=== PATIENT | male | born 1955 | race American Indian/Alaskan Native ===

== ENCOUNTER 2017-02-23 20:43 | Emergency (ER) | payer OTHER ==
--- NOTE | 2017-02-23 21:20 | C.PDOC ---
History Of Present Illness 61 year old male with no significant PMHx who presents for evaluation of left sided lower back pain radiating to the left leg that has been gradually worsening over the past few days. Patient admits the pain is localized and worsens with movement. Patient reports he does heavy lifting at work that might exacerbate the pain; otherwise denies any direct trauma/injury, CP, SOB, dyspnea , abdominal pain, nausea, vomiting, UTI symptoms., incontinence, saddle anesthesia, denies weakness, sensory or vascular deficits to B/L LEs. Ambulate to Ed for evaluation, appears in some painful distress. Time Seen by Provider: 02/23/17 21:08 Chief Complaint (Nursing): Back Pain History Per: Patient History/Exam Limitations: no limitations Onset/Duration Of Symptoms: Days Current Symptoms Are (Timing): Still Present Quality Of Discomfort: Unable To Describe Previous Symptoms: None Associated Symptoms: None Exacerbating Factor(s): Movement Recent travel outside of the [place]: No Past Medical History Reviewed: Historical Data, Nursing Documentation, Vital Signs Vital Signs: Last Vital Signs Temp 98 F 02/23/17 20:47 Pulse 67 02/23/17 20:47 Resp 20 02/23/17 20:47 BP 156/93 H 02/23/17 20:47 Pulse Ox 97 02/23/17 21:28 - Medical History PMH: Arthritis Surgical History: No Surg Hx Family History: States: Unknown Family Hx - Social History Hx Alcohol Use: No Hx Substance Use: No - Immunization History Hx Tetanus Toxoid Vaccination: No Hx Influenza Vaccination: No Hx Pneumococcal Vaccination: No Review Of Systems Except As Marked, All Systems Reviewed And Found Negative. Constitutional: Negative for: Fever, Chills ENT: Negative for: Throat Pain Cardiovascular: Negative for: Chest Pain Gastrointestinal: Negative for: Nausea, Vomiting, Abdominal Pain Genitourinary: Negative for: Dysuria, Incontinence, Hematuria Musculoskeletal: Positive for: Back Pain, Leg Pain Skin: Negative for: Rash Neurological: Negative for: Weakness, Numbness Physical Exam - Physical Exam Appears: Non-toxic, No Acute Distress Skin: Normal Color, Warm, Dry, No Rash Oral Mucosa: Moist Throat: No Erythema Neck: Normal ROM, Supple Gastrointestinal/Abdominal: Soft, No Tenderness, No Distention, No Guarding Back: No CVA Tenderness, No Vertebral Tenderness, Paraspinal Tenderness (Left sided lumbar), Straight Leg Raising (left leg (+)at 70 degress, right leg (+)80 degrees) Extremity: Normal ROM (x4), Tenderness (left gluteus), No Pedal Edema, No Calf Tenderness (B/L), No Deformity Neurological/Psych: Oriented x3, Normal Speech, Normal Cognition, Normal Motor, Normal Sensation, Normal Reflexes Gait: Steady ED Course And Treatment O2 Sat by Pulse Oximetry: 97 (Room air) Pulse Ox Interpretation: Normal - Other Rad L-spine xray X-Ray: Interpreted by Me, Viewed By Me Interpretation: (+) mild DJD, no acute fx or sublux. (+) gas pattern c/w constipation Progress Note: LS spine x-ray and urinalysis ordered. Toradol and valium administered. On re-eavl, pt is afebrile, hemodynamicaly stable. non-toxic. AMbulatory in Ed with stable gait. neck; Supple. Abd: benign, (-) guarding, (- ) rebound. back: (-) CVA tenderness. Neuorlogicaly intact. Imaging review and appears without acute abnoramlities. UA- normal study. Pt has clinical findings c/w left lumbar radiculopathy, constipation. Pt advised. ref. to f/u with PMD in 2-3 days for re-eavl. return if any new changes. Disposition Counseled Patient/Family Regarding: Studies Performed, Diagnosis, Need For Followup, Rx Given - Disposition Referrals: [facility] [Outside] Disposition: HOME/ ROUTINE Disposition Time: 21:45 Condition: STABLE Additional Instructions: AVOID HEAVY LIFTING, BENDING FORWARD. ETC TAKE PAIN MEDICATION NEED FOR PAIN FOLLOW UP WITH PMD IN 2-3 DAYS FOR RE-EVALUATION. RETURN TO ED IF ANY WORSENING OR NEW CHANGES. Prescriptions: Ibuprofen [Motrin Tab] 600 mg PO Q6 #20 tab Methocarbamol [Robaxin] 500 mg PO TID #14 tab traMADol [Ultram] 50 mg PO TID #7 tab Instructions: Lumbar Radiculopathy (ED), Constipation (ED) Forms: [employer] (Romanian), Work Excuse - Clinical Impression Clinical Impression: Lumbar radiculopathy, Constipation - Scribe Statement The provider has reviewed the documentation as recorded by the Scribmiguel Barrow All medical record entries made by the Scribe were at my direction and personally dictated by me. I have reviewed the chart and agree that the record accurately reflects my personal performance of the history, physical exam, medical decision making, and the department course for this patient. I have also personally directed, reviewed, and agree with the discharge instructions and disposition.
[2017-02-23 21:40] LABS: RBC URINE < 1 /hpf (0-3); URINE BILIRUBIN NEGATIVE (NEGATIVE); URINE BLOOD NEGATIVE (NEGATIVE); URINE COLOR Yellow (YELLOW); URINE GLUCOSE (UA) NORMAL (Normal); URINE KETONE NEGATIVE (NEGATIVE); URINE LEUKOCYTE ESTERASE NEG Leu/uL (Negative); URINE PROTEIN NEGATIVE (NEGATIVE); URINE UROBILINOGEN NORMAL mg/dL (0.2-1.0); WBC URINE < 1 /hpf (0-5)
[2017-02-23 22:10] VITALS: BP 169/93; PULSE 63; RESP 18; TEMP 98.3; O2SAT 100
--- NOTE | 2017-02-24 14:03 | RAD ---
PROCEDURE: Radiographs of the Lumbar Spine. HISTORY: pain COMPARISON: No prior. FINDINGS: BONES: No acute compression fractures nor retropulsed fragments. Vertebral bodies exhibit normal stature. There is mild straightening of the normal lumbar lordosis. Additionally, there is a subtle dextroscoliosis centered in the lower lumbar region. Vertebral bodies otherwise exhibit normal alignment. Facets normally aligned. . DISC SPACES: Multilevel degenerative spondylosis. Disc space heights are relatively maintained. Multilevel anterolateral osteophyte formation ranging from small to large size. . There also appears to be partial bridging syndesmotic fight formation at the T11-T12 level on the right. . Large, probable partially bridging, anterior osteophyte formation L4-L5 level as well OTHER FINDINGS: None. IMPRESSION: No acute fractures. Multilevel degenerative spondylosis as described.
== END 2017-02-23 22:09 | disposition home or self-care (01) ==
LOC: C.ER 20:43
DX: M54.16 Radiculopathy, lumbar region (principal); K59.00 Constipation, unspecified
CPT/HCPCS: 72100; 81001; 96372; 99283; J1885